=== PATIENT | male | born 1965 ===

== ENCOUNTER 2016-12-08 03:01 | Inpatient (IN) ==
[2016-12-08] MEDS ORDERED: PEPCID ONE (06:49)
[2016-12-08] MEDS ORDERED: ENTEREG ONE (06:49)
[2016-12-08] MEDS ORDERED: REGLAN ONE (06:49)
[2016-12-08] MEDS ORDERED: INVANZ 1 GM/NS 1 GM/50 ML IVPB ONE (06:49)
[2016-12-08] MEDS ORDERED: SODIUM CHLORIDE 0.9% 10 ML ONE (08:20)
[2016-12-08] MEDS ORDERED: MARCAINE 0.25% PF/EPI 1:200,000 ONE (08:20)
[2016-12-08] MEDS ORDERED: EXPAREL 1.3% ONE (08:21)
[2016-12-08 09:04] LABS: URINE MICRO REVIEW NEEDED? NO; URINE SOURCE CATH
[2016-12-08] MEDS ORDERED: FENTANYL ONE (10:55)
[2016-12-08] MEDS ORDERED: DIPRIVAN 1% ONE (10:56)
[2016-12-08] MEDS ORDERED: TORADOL ONE (11:01)
[2016-12-08] MEDS ORDERED: LR 1,000 ML ONE (11:01)
[2016-12-08] MEDS ORDERED: NEOSTIGMINE ONE (11:35)
[2016-12-08] MEDS ORDERED: ZEMURON ONE (11:36)
[2016-12-08] MEDS ORDERED: ROBINUL ONE (11:36)
[2016-12-08] MEDS ORDERED: [UNRECOGNIZED DRUG - OTHER] ONE (11:36)
[2016-12-08] MEDS ORDERED: PHENERGAN ONE (11:36)
[2016-12-08] MEDS ORDERED: DECADRON ONE (11:36)
[2016-12-08] MEDS ORDERED: ZOFRAN ONE (11:36)
[2016-12-08] MEDS ORDERED: LR 2,000 ML ONE (11:36)
[2016-12-08] MEDS ORDERED: OFIRMEV ONE (11:36)
[2016-12-08] MEDS ORDERED: XYLOCAINE-MPF 2% ONE (11:36)
[2016-12-08] MEDS ORDERED: QUELICIN (DOSE) ONE (11:36)
[2016-12-08 11:38] LABS: BILIRUBIN URINE NEGATIVE (NEGATIVE); BLOOD URINE NEGATIVE (NEGATIVE); COLOR STRAW; GLUCOSE URINE NEGATIVE (NEGATIVE); LEUKOCYTES URINE NEGATIVE (NEGATIVE); NITRITE URINE NEGATIVE (NEGATIVE); PROTEIN URINE NEGATIVE (NEGATIVE); SP GRAVITY URINE 1.005; TURBIDITY URINE CLEAR (CLEAR); UROBILINOGEN URINE NORMAL (NORMAL)
[2016-12-08 11:41] LABS: UR EPITHELIAL CELLS <10 /HPF (<10); URINE BACTERIA NEGATIVE /HPF; URINE RBC <10 /HPF (<10); URINE WBC <10 /HPF (<10)
[2016-12-08] MEDS ORDERED: NORCO-10 PO PRN (12:36)
[2016-12-08] MEDS ORDERED: SODIUM CHLORIDE 0.9% INJ PRN (12:36)
[2016-12-08] MEDS ORDERED: PHENERGAN IV PRN (12:36)
[2016-12-08] MEDS: LR 1,000 ML IV SCH (12:51)
[2016-12-08] MEDS: OFIRMEV 1000 MG/ISOTONIC SOLN 1,000 MG/100 ML BOTTLE IV SCH ×2 (15:09→20:21)
[2016-12-08] MEDS: MORPHINE INJ PRN ×2 (15:13→16:53)
--- NOTE | 2016-12-08 16:13 | OPERATIVE NOTE ---
PROCEDURE DATE: 12/08/2016 PREOPERATIVE DIAGNOSIS: Ascending colon mass. POSTOPERATIVE DIAGNOSIS: Metastatic colon cancer. PRINCIPAL PROCEDURE: 1. Open right hemicolectomy. 2. Core needle biopsy of liver lesion, left lobe of liver. SURGEON: Li Barlow MD. BAND SHOVER: Galdino Bunn RN. ANESTHESIA: General in addition to a TAP block preoperatively. ESTIMATED BLOOD LOSS: 100 mL. DRAINS: None. INDICATIONS: Mr. Ross Salmon is a 51-year-old white male who underwent screening colonoscopy which documented a large mass in his ascending colon. He underwent a preoperative CT scan which suggested some lesions in the liver that were indeterminate. Colon resection was recommended. FINDINGS: He had an ascending colon mass. He had evidence of at least 5 separate lesions within both lobes of the liver that look like metastatic cancer. No other intra-abdominal pathology was noted. DESCRIPTION OF PROCEDURE: The patient underwent a bowel prep prior to his presentation on the day of surgery. His bowel prep included oral antibiotics. He received IV Invanz prior to surgery. He was brought to the operating room, received general anesthesia, was intubated. Then, anesthesia did a TAP block. A Hamm catheter tube was placed. His abdomen was prepped and draped within a sterile field. I used an Ioban on the skin, and I used a wound protector for retraction. We made a midline incision using a 10 blade scalpel. This incision was carried down through the skin into the subcutaneous tissue. We transected the subcutaneous tissue and the midline fascia using cautery and the abdomen was entered. He had no previous surgery and there was no intra-abdominal scarring. We explored the abdomen with the findings above. We placed our wound protector. We also used some handheld retraction for exposure. We began our procedure by mobilizing the appendix, cecum, and ascending colon by incising the peritoneum laterally using the cautery. We identified the duodenum and preserved it and, with the cautery and blunt finger dissection, dissected it off of ascending colonic mesentery. We mobilized the hepatic flexure and the transverse colon to the middle colic vessels. I used the ANDREY stapler to transect the transverse colon distal to the middle colic vessels. I used a reload of this ANDREY to transect the ileum just proximal to the ileocecal valve about 4 cm proximal to the ileocecal valve. We came across the colonic mesentery using cautery and, as we encountered vessels, we used hemostats and 3- 0 silk ties. The right colon vessels I used a July to control, and I used 2-0 stick ties to control these larger vessels. We took them at their base, and we did a good cancer operation removing all the mesentery to its base involving the right colon. The specimen was removed from the field, and I have performed an end [id number] transverse double-layer sewn anastomosis. The posterior layer was interrupted 3-0 silk stitches which were reinforced with a running interlocking double-armed 3-0 Vicryl stitch which was continued on the anterior wall as a Hemet stitch. 3-0 silk Lembert stitches were used to reinforce our anterior wall. There is no tension on our anastomosis. The blood supply appeared to be excellent and the caliber of the lumen was also good. We placed this anastomosis in the right upper quadrant, and we made sure that we ran the small bowel and that there was no twists of the mesentery. We laid the greater omentum over the bowel and we irrigated the right paracolic gutter with warm saline and it was removed using suction. It must be noted that we changed gloves after the anastomosis. We closed our midline incision in layers. The first layer was the peritoneum which I closed with a running 0 Vicryl stitch and then I closed the midline fascia with a #1 Maxon stitch. We again irrigated the midline wound and closed the skin with a skin clip care management specialist and dressings were applied. We did not use an NG tube. A Hamm catheter tube is in place. He will go to the recovery room and then to the floor. I spoke with his after the procedure. cc: MD Nate Frye MD
[2016-12-08] MEDS: TORADOL IV SCH ×2 (16:53→20:21)
[2016-12-08] MEDS: PERIDEX MT SCH (20:21)
[2016-12-08] MEDS: ENTEREG PO SCH (20:21)
[2016-12-09] MEDS: LR 1,000 ML IV SCH (00:52)
[2016-12-09] MEDS: TORADOL IV SCH ×3 (00:57→11:32)
[2016-12-09] MEDS: LOVENOX SUBQ SCH (05:35)
[2016-12-09] MEDS: OFIRMEV 1000 MG/ISOTONIC SOLN 1,000 MG/100 ML BOTTLE IV SCH ×4 (05:35→21:02)
[2016-12-09] MEDS: D5 1/2 NS + KCL 20 MEQ 1,000 ML IV SCH ×2 (07:53→21:00)
--- NOTE | 2016-12-09 07:57 | PROGRESS NOTE ---
DATE: 12/09/2016 Mr. Ross Salmon is a 51-year-old white male who is now postop day 1 from an open right hemicolectomy for ascending colon cancer. It appeared that he had metastatic disease in his liver and core needle biopsy of 1 of the lesions was performed. This morning he is awake and seems to be doing well. We removed his Hamm catheter. We will begin him on clear liquids and we will remove his intermittent compression hose because he is receiving subcutaneous Lovenox. His heart rate is 54, blood pressure 120/60, O2 saturation 97%. He is afebrile, on no antibiotics. His midline incision is dressed. cc: Li Barlow MD
[2016-12-09] MEDS: PERIDEX MT SCH ×2 (08:01→21:02)
[2016-12-09] MEDS: ENTEREG PO SCH ×2 (08:01→21:01)
[2016-12-09] MEDS: TORADOL PO SCH ×2 (16:41→21:01)
[2016-12-10] MEDS: TORADOL PO SCH ×3 (01:35→11:30)
[2016-12-10] MEDS: OFIRMEV 1000 MG/ISOTONIC SOLN 1,000 MG/100 ML BOTTLE IV SCH ×2 (05:35→09:04)
[2016-12-10] MEDS: LOVENOX SUBQ SCH (05:36)
[2016-12-10] MEDS: PERIDEX MT SCH (09:04)
[2016-12-10] MEDS: ENTEREG PO SCH (09:04)
[2016-12-10 12:03] VITALS: BP 122/66
--- NOTE | 2016-12-11 07:57 | DISCHARGE SUMMARY ---
ADMISSION DATE: 12/08/2016 DISCHARGE DATE: 12/10/2016 PREOPERATIVE DIAGNOSIS: Ascending colon mass. DISCHARGE DIAGNOSIS: Ascending colon cancer metastatic to the liver. PRINCIPAL PROCEDURE: Open right hemicolectomy with a core needle biopsy of left lobe liver lesion on 12/08/2016. DISCHARGE DISABILITIES: Full. DISCHARGE DISPOSITION: He will return to our outpatient offices this coming Wednesday. DISCHARGE MEDICATIONS: [place] 7.5. He is on no home medications. DISCHARGE DIET: Full liquids. HOSPITAL COURSE: Mr. Ross Salmon is a 51-year-old white male who underwent a screening colonoscopy which documented an ascending colon mass. A CT scan of his abdomen and pelvis was performed prior to surgery and some liver lesions were noted on this exam. The etiology of them was unknown. We recommended an ascending colon resection. He underwent a bowel prep prior to his presentation which included oral antibiotics. He received IV Invanz prior to surgery. We did a midline incision and performed an open right hemicolectomy which we felt went well. We did an end ileum to transverse colon double-layer sewn anastomosis. We also took core needle biopsies of the lesion involving the left lobe of the liver. On palpation of the liver there appeared to be tumor on both sides of the liver. We did not leave any intra-abdominal drains. He had a Hamm catheter tube in place. We did not use an NG tube. He went to the recovery room and then the floor and we feel that his postoperative convalescence has been excellent. It must be noted that he had a tap block placed by anesthesia prior to surgery. We did not use a pain pump. He was on Tylenol, Toradol and morphine for breakthrough pain. We removed his Hamm on postop day 1, we began clear liquids on postop day 1, and on postop day 3, it was felt safe to discharge him to his home. He had several liquid bowel movements prior to discharge and some flatus. His abdomen was mostly soft. His midline incision was healing well. His heart rate was 57. Blood pressure 122/66. He was afebrile on no antibiotics. He will be discharged home under the care of his , they live close to [place], with followup in my outpatient office Wednesday. They know to call me with any problems. cc: Li Barlow MD
== END 2016-12-10 14:19 | disposition home or self-care (01) ==
LOC: SURHOLD 03:01 → 4N 11:35
PROVIDERS: ADMIT Surgery; ATTEND Surgery